=== PATIENT | male | born 1995 | race Asian ===

== ENCOUNTER 2017-07-24 12:22 | Emergency (ER) | payer BC ==
[~2017-07-24] VITALS: Ht 170.2 cm; Wt 72.6 kg
[2017-07-24 12:30] VITALS: BP 133/73
--- NOTE | 2017-07-24 12:35 | NUR ---
PATIENT PRESENTS TO ED THIS 22 YO MALE BIB SELF FOR LEFT TESTICULAR PAIN. . PT STATES NO MEDICAL HISTORY. DENIES N/V/D; SKIN IS PINK/WARM/DRY; AAOX4 WITH EVEN AND STEADY GAIT; LUNGS CLEAR BL; HR EVEN AND REGULAR; PT DENIES ANY FEVER, CP, SOB, OR COUGH AT THIS TIME; PATIENT STATES PAIN OF 3/10 AT THIS TIME; VSS; PATIENT POSITIONED FOR COMFORT; HOB ELEVATED; BEDRAILS UP X2; BED DOWN. ER MD MADE AWARE OF PT STATUS.
--- NOTE | 2017-07-24 12:42 | NUR ---
Patient ambulated to bed 8. RN evaluating patient at bedside.
--- NOTE | 2017-07-24 12:45 | NUR ---
Dr. Green evaluating patient at bedside.
[2017-07-24 13:17] LABS: APPEARANCE,URINE HAZY (CLEAR); BILIRUBIN,URINE NEGATIVE (NEGATIVE); BLOOD, URINE NEGATIVE (NEGATIVE); COLOR,URINE YELLOW (YELLOW); LEUKOCYTE ESTERASE ,URINE NEGATIVE (NEGATIVE); NITRITE, URINE NEGATIVE (NEGATIVE); UGLUCOSE NEGATIVE (NEGATIVE)
--- NOTE | 2017-07-24 15:05 | NUR ---
Patient discharged with v/s stable. Written and verbal after care instructions given and explained. Patient verbalized understanding. Ambulatory with steady gait. All questions addressed prior to discharge. Advised to follow up with PMD.
[2017-07-24 15:08] VITALS: BP 126/79
== END 2017-07-24 15:05 | disposition home or self-care (01) ==
LOC: MED 12:22
DX: N50.812 Left testicular pain (principal)
CPT/HCPCS: 36415; 76870; 81003; 99285; Q0092